=== PATIENT | female | born 1990 | race Caucasian/White ===

== ENCOUNTER 2017-05-28 13:19 | Emergency (ER) | payer MEDICAID ==
[~2017-05-28 13:19] MED LIST: GUAI100S6 PO; ZITH250T PO
[2017-05-28 13:22] VITALS: BP 122/67; PULSE 83; RESP 16; TEMP 97.8; O2SAT 100
[2017-05-28] MEDS ORDERED: ACYC800T PO (14:07)
--- NOTE | 2017-05-28 14:13 | PD ---
HPI Chief Complaint: Skin Problem Time Seen by Provider: 13:33 Travel History International Travel<30 days: No Contact w/Intl Traveler<30days: No Traveled to known affect area: No History of Present Illness HPI 27-year-old female 9 weeks presents emergency department for evaluation of a rash on her right thigh that is been present for approximately 5 days. States initially she had some burning and tingling sensation that wraps around to the lateral thigh but states this has resolved. Says the rash has persisted. Says the area is mildly painful, worse with palpation. Says that the rash appears about the same as when it started however, it appears more red but a little less tender. Patient states she said she did have chickenpox in her youth. Says she is up-to-date with her immunizations. Denies fevers or chills. Denies body aches or general malaise. Denies chronic medical issues and medication use. Denies any exposures, new soaps or lotions. PFSH Past Medical History Medical History: Denies Significant Hx Diminished Hearing: No Immunizations Current: Yes Tetanus Vaccination: > 5 Years Influenza Vaccination: No ?: Past Surgical History Surgical History: No Previous Surgery Social History Alcohol Use: No Tobacco Use: No Substance Use: No Allergies-Medications (Allergen,Severity, Reaction): Coded Allergies: No Known Allergies (Verified Adverse Reaction, Unknown, 05/28/17) Reported Meds & Prescriptions Reported Meds & Active Scripts Active Acyclovir 800 Mg Tab 800 Mg PO 5 TIMES A DAY 7 Days Review of Systems Except as stated in HPI: all other systems reviewed are Neg Physical Exam Narrative GENERAL: Well-nourished, well-developed patient. SKIN: Focused skin assessment warm/dry. Right anterior thigh-erythema about 3-4 cm, round with multiple papules. No obvious fluid. Tender palpation to the area. No lymph antibiotic spread. HEAD: Normocephalic. EYES: No scleral icterus. No injection or drainage. NECK: Supple, trachea midline. No JVD or lymphadenopathy. CARDIOVASCULAR: Regular rate and rhythm without murmurs, gallops, or rubs. RESPIRATORY: Breath sounds equal bilaterally. No accessory muscle use. GASTROINTESTINAL: Abdomen soft, non-tender, nondistended. MUSCULOSKELETAL: No cyanosis, or edema. BACK: Nontender without obvious deformity. No CVA tenderness. Data Data Last Documented VS Vital Signs Date Time Temp Pulse Resp B/P (MAP) Pulse Ox O2 Delivery O2 Flow Rate FiO2 05/28/17 13:22 97.8 83 16 122/67 (85) 100 Orders Orders Ed Discharge Order (05/28/17 14:13) MDM Medical Decision Making Medical Screen Exam Complete: Yes Emergency Medical Condition: Yes Differential Diagnosis Herpes zoster, contact dermatitis, cellulitis Narrative Course 27-year-old female 9 weeks presents emergency department for evaluation of a rash on her right thigh that is been present for approximately 5 days. States initially she had some burning and tingling sensation that wraps around to the lateral thigh but states this has resolved. Says the rash has persisted. Says the area is mildly painful, worse with palpation. Says that the rash appears about the same as when it started however, it appears more red but a little less tender. Patient states she said she did have chickenpox in her youth. Says she is up-to-date with her immunizations. Denies fevers or chills. Denies body aches or general malaise. Denies chronic medical issues and medication use. Denies any exposures, new soaps or lotions. Vital signs stable. Because patient is 9 weeks , will cover for possible shingles infection. Patient's history and physical is somewhat consistent with shingles. Patient appears to be a normal, healthy 27-year-old female likely this is why she is not presenting with pustules or other complications. Acyclovir 800 mg 5 times daily for shingles. She is advised to follow-up with her assistant financial accountant as soon as possible for evaluation. Advised to return for worsening or persistent symptoms. Diagnosis Primary Impression: Shingles Qualified Codes: B02.8 - Zoster with other complications Referrals: Primary Care Physician Additional Instructions: Follow-up with your assistant financial accountant as soon as possible. Take all medication as prescribed. If the rash increases or worsens return to emergency department immediately. Scripts Acyclovir (Acyclovir) 800 Mg Tab 800 MG PO 5 TIMES A DAY for Mgmt Viral Infection for 7 Days, TAB 0 Refills Prov: Jc Campos MD 05/28/17 Disposition: 01 DISCHARGE HOME Condition: Stable Jennifer Combs May 28, 2017 14:13
== END 2017-05-28 14:45 | disposition home or self-care (01) ==
LOC: PHEFT 13:19
DX: O98.511 Other viral diseases complicating pregnancy, first trimester (principal); B02.9 Zoster without complications; Z3A.09 9 weeks gestation of pregnancy
CPT/HCPCS: 99283

== ENCOUNTER 2017-06-28 21:22 | Emergency (ER) | payer MEDICAID ==
[~2017-06-28] VITALS: Ht 154.9 cm; Wt 78.0 kg
[~2017-06-28 21:22] MED LIST changes: +ACYC800T PO; -GUAI100S6 PO; -ZITH250T PO
[2017-06-28 21:31] VITALS: BP 128/63; PULSE 90; RESP 18; TEMP 98.2; O2SAT 100
[2017-06-28] MEDS ORDERED: PRENTAB7 PO (21:57)
[2017-06-28 22:32] LABS: AUTOMATED NEUTROPHIL # 4.1 TH/MM3 (1.8-7.7); BASOPHIL # 0.1 TH/MM3 (0-0.2); BASOPHIL % 1.1 % (0.0-2.0); EOSINOPHIL # 0.2 TH/MM3 (0-0.4); EOSINOPHIL % 2.2 % (0.0-4.0); HEMATOCRIT 37.7 % (35.0-46.0); HEMOGLOBIN 12.6 GM/DL (11.6-15.3); MEAN CELL VOLUME 90.3 FL (80.0-100.0); MEAN CORPUSCULAR HEMOGLOBIN 30.2 PG (27.0-34.0); MEAN CORPUSCULAR HGB CONC 33.5 % (32.0-36.0); MEAN PLATELET VOLUME 6.9 FL (7.0-11.0); MONO % 5.7 % (0.0-8.0); MONOCYTE # 0.5 TH/MM3 (0-0.9); PLATELET COUNT 229 TH/MM3 (150-450); RED BLOOD COUNT 4.17 MIL/MM3 (4.00-5.30); RED CELL DISTRIBUTION WIDTH 11.6 % (11.6-17.2); WHITE BLOOD COUNT 7.9 TH/MM3 (4.0-11.0)
--- NOTE | 2017-06-28 23:32 | PD ---
HPI . vaginal bleeding Chief Complaint: Related Problem Time Seen by Provider: 21:43 Travel History International Travel<30 days: No Contact w/Intl Traveler<30days: No Traveled to known affect area: No History of Present Illness HPI Patient is a 27-year-old female who said her last full menstrual period would have been in March she thinks that she has been since April she is coming in because she is having post voiding spotting bright red blood on the toilet paper she denies any clots however she is having little right lower adnexal pain which was cramping intermittent and it is not like her normal. Cramps it is more off to the right. Patient denies any history of ectopic pregnancies she has not seen a cellar hand yet for this urine bedside is positive faintly PFSH Past Medical History Medical History: Denies Significant Hx Diminished Hearing: No Immunizations Current: Yes Tetanus Vaccination: Unknown Influenza Vaccination: No ?: LMP: 04/09/17 : 1 Para: 0 Past Surgical History Surgical History: No Previous Surgery Social History Alcohol Use: No Tobacco Use: No Substance Use: No Allergies-Medications (Allergen,Severity, Reaction): Coded Allergies: No Known Allergies (Verified Adverse Reaction, Unknown, 05/28/17) Reported Meds & Prescriptions Reported Meds & Active Scripts Active Keflex (Cephalexin) 250 Mg Cap 250 Mg PO Q6H Reported Vitamins Tablet (Pnv No.95/Ferrous Fum/Folic AC) 28 Mg Iron-800 Mcg Tablet 1 Tab PO DAILY Review of Systems Except as stated in HPI: all other systems reviewed are Neg Gastrointestinal: Positive: Abdominal Pain Genitourinary: Positive: Vaginal Bleeding Physical Exam Narrative GENERAL: Awake alert nontoxic-appearing in no distress SKIN: Warm and dry. HEAD: Atraumatic. Normocephalic. EYES: Pupils equal and round. No scleral icterus. No injection or drainage. ENT: No nasal bleeding or discharge. Mucous membranes pink and moist. NECK: Trachea midline. No JVD. CARDIOVASCULAR: Regular rate and rhythm. RESPIRATORY: No accessory muscle use. Clear to auscultation. Breath sounds equal bilaterally. GASTROINTESTINAL: Abdomen right lower adnexal tenderness mild NEUROLOGICAL: Awake and alert. No obvious cranial nerve deficits. Motor grossly within normal limits. Five out of 5 muscle strength in the arms and legs. Normal speech. PSYCHIATRIC: Appropriate mood and affect; insight and judgment normal. Data Data Last Documented VS Vital Signs Date Time Temp Pulse Resp B/P (MAP) Pulse Ox O2 Delivery O2 Flow Rate FiO2 06/29/17 02:05 06/29/17 01:45 75 14 100 Room Air 06/28/17 21:31 98.2 Orders Orders Ed Urine Pregnancytest Poc (06/28/17 22:04) Beta Hcg (Quant/Titer) (06/28/17 22:04) Complete Blood Count With Diff (06/28/17 22:04) Urinalysis - C+S If Indicated (06/29/17 00:06) Us Pelvis (Ques Pr/Ect)W Trans (06/29/17 ) Urine Culture (06/29/17 00:25) Ed Discharge Order (06/29/17 01:57) Labs Laboratory Tests Test 06/28/17 22:20 06/29/17 00:25 White Blood Count 7.9 TH/MM3 Red Blood Count 4.17 MIL/MM3 Hemoglobin 12.6 GM/DL Hematocrit 37.7 % Mean Corpuscular Volume 90.3 FL Mean Corpuscular Hemoglobin 30.2 PG Mean Corpuscular Hemoglobin Concent 33.5 % Red Cell Distribution Width 11.6 % Platelet Count 229 TH/MM3 Mean Platelet Volume 6.9 FL Neutrophils (%) (Auto) 53.0 % Lymphocytes (%) (Auto) 38.0 % Monocytes (%) (Auto) 5.7 % Eosinophils (%) (Auto) 2.2 % Basophils (%) (Auto) 1.1 % Neutrophils # (Auto) 4.1 TH/MM3 Lymphocytes # (Auto) 3.0 TH/MM3 Monocytes # (Auto) 0.5 TH/MM3 Eosinophils # (Auto) 0.2 TH/MM3 Basophils # (Auto) 0.1 TH/MM3 CBC Comment DIFF FINAL Differential Comment Human Chorionic Gonadotropin, Quant 162 MIU/ML Urine Color YELLOW Urine Turbidity CLOUDY Urine pH 7.5 Urine Specific Butler 1.020 Urine Protein NEG mg/dL Urine Glucose (UA) NEG mg/dL Urine Ketones NEG mg/dL Urine Occult Blood NEG Urine Nitrite NEG Urine Bilirubin NEG Urine Urobilinogen 1.0 MG/DL Urine Leukocyte Esterase NEG Urine RBC 0-3 /hpf Urine WBC 9-14 /hpf Urine Squamous Epithelial Cells 0-5 /hpf Urine Amorphous Sediment MOD Urine Bacteria FEW /hpf Microscopic Urinalysis Comment CULTURE INDICATED MDM Medical Decision Making Medical Screen Exam Complete: Yes Emergency Medical Condition: Yes Differential Diagnosis Frontal diagnosis includes demise versus missed AB versus early versus placenta previa versus threatened AB Narrative Course Patient's ultrasound shows a demise with a 8 week with no heart her beta hCG is only 162 which is very low for her dates between ultrasound and low level of beta-hCG this is a demise .. she is to be discharged to follow-up with her outpatient provider.. I tell her to expect a heavy period in the next few days if not the provider she sees may help give her medications to induce her I am giving her prescription for Keflex 250 3 times daily for the next 7 days for the few white cells 9-14 white cells in her urine.. I put dr mata Montoya FLEET ASSISTANT phone and address if she can not follow up with her own OBGYN Diagnosis Primary Impression: demise before 20 weeks with retention of fetus Referrals: Mata Montoya MD Patient Instructions: General Instructions, Intrauterine Demise (ED) Additional Instructions: Follow up with your NETWORK SYSTEMS OPERATOR MD in 24-48 hours . show them the results from our ER . Return to the ER for severe heavy bleeding or uncontrolled pain . I put the name of our wage conciliator SYSTEM ENGINEER MD on your discharge papers Scripts Cephalexin (Keflex) 250 Mg Cap 250 MG PO Q6H for Infection, #20 CAP 0 Refills Prov: Kiran Turner MD 06/29/17 Disposition: 01 DISCHARGE HOME Condition: Good Kiran Turner MD June 28, 2017 23:32
[2017-06-29 00:15] VITALS: BP 109/62; PULSE 79; RESP 14; O2SAT 100
[2017-06-29 01:05] LABS: BILIRUBIN, URINE NEG (NEG); BLOOD, URINE NEG (NEG); GLUCOSE,URINE NEG (NEG); KETONE, URINE NEG (NEG); NITRITE,URINE NEG (NEG); PH, URINE 7.5 (5.0-8.5); URINE COLOR YELLOW (YELLW/STRAW); URINE LEUKOCYTE ESTERASE NEG (NEG)
[2017-06-29 01:11] LABS: AMORPHOUS SEDIMENT, URINE MOD; BACTERIA, URINE FEW /hpf; RBC, URINE 0-3 /hpf (0-3); SQUAMOUS EPITHELIAL CELL URINE 0-5 /hpf (0-5)
--- NOTE | 2017-06-29 01:28 | RADRPT ---
EXAM DATE/TIME: 06/29/2017 00:47 [facility] COMPARISON: No previous studies available for comparison. INDICATIONS : Bleeding. LAB(S): Beta-hC MEDICAL HISTORY : Bleeding. Pelvic pain. SURGICAL HISTORY : None. ENCOUNTER: Initial ACUITY: 2 days PAIN SCORE: 2/10 LOCATION: Bilateral pelvis MEASUREMENTS: UTERUS: 11.2 x 7.5 x 5.6 cm ENDOMETRIAL STRIPE: >20 mm RIGHT OVARY: 3.6 x 1.5 x 1.6 cm LEFT OVARY: 3.1 x 1.8 x 1.6 cm FREE FLUID: Yes cul de sac CROWN RUMP LENGTH: 1.9 = 8 WKS 3 DAYS FINDINGS: UTERUS: There is a single early intrauterine present. The crown-rump length corresponds to 8 week 3 day menstrual age. There was no heart beat despite repeated imaging. RIGHT OVARY: Ovary contains no mass or significant cystic lesion. LEFT OVARY: Ovary contains no mass or significant cystic lesion. MISCELLANEOUS: Free fluid is noted in the cul-de-sac. CONCLUSION: Early intrauterine with evidence of demise with no obtainable heart b eat. Oracio Saavedra MD on June 29, 2017 at 1:24 Board Certified Radiologist. This report was verified electronically.
[2017-06-29 01:45] VITALS: BP 116/62; PULSE 75; RESP 14; O2SAT 100
[2017-06-29] MEDS ORDERED: CEPH-459 PO (01:54)
== END 2017-06-29 02:09 | disposition home or self-care (01) ==
LOC: PHED 21:22
DX: O02.1 Missed abortion (principal)
CPT/HCPCS: 76700; 76817; 81001; 84702; 84703; 85025; 87086